=== PATIENT | female | born 1945 | race Caucasian/White ===

== ENCOUNTER 2016-07-27 15:51 | Inpatient (IN) | payer OTHER, MEDICARE ==
--- NOTE | ~2016-07-27 | DS ---
Unit #: [id number] #: [id number] Patient: MADDISON MANZANO [id number] [address] [address] [id number] I MR#: [id number] NAME: MADDISON MANZANO ROOM: [facility] Age: 70 Sex: F Admission Date: 07/27/2016 : 1945 Discharge Date: Attending Physician: Adelaida Pabon M.D. Primary Care Physician: Angel Kessler M.D. DISCHARGE SUMMARY DISCHARGE DIAGNOSES 1. Nonsmall cell lung cancer with metastasis. 2. Acute hypercapnic hypoxic respiratory failure. 3. Chronic obstructive pulmonary disease with exacerbation. 4. Obstructive sleep apnea on CPAP. 5. Hypertension. 6. Hyperlipidemia. 7. Gastroesophageal reflux disease. 8. Gout. 9. Hypothyroidism. 10. Peripheral neuropathy. 11. Morbid obesity. 12. Hypokalemia. CONSULTATIONS 1. Dr. Sexton. 2. Dr. Gracia. PROCEDURE None. DIAGNOSTIC STUDIES LABORATORY: Sodium 142, potassium 2.9, carbon dioxide 37, creatinine 1.1. WBC 7.9, hemoglobin 14.2, platelets 180,000. Blood cultures negative. TSH 1.99. BMI of 40.2. BNP 868. IMAGING: Ultrasound of the extremities: Negative for DVT. CAT scan of the abdomen and pelvis shows no acute findings. Cirrhotic morphology of the liver present. CAT scan of the chest shows a small right pleural effusion, emphysema present. No focal consolidation. ALLERGIES IV dye. DISCHARGE MEDICATIONS 1. DuoNeb 3 mL inhalation three times daily p.r.n. shortness of breath. 2. Neurontin 100 three times daily p.r.n. neuropathy. 3. Valium 5 mg at bedtime. 4. Lopressor 50 p.o. b.i.d. 5. Zocor 40 mg at bedtime. 6. Allopurinol 300 daily. Unit #: [id number] #: [id number] Patient: MADDISON MANZANO 7. Omeprazole 40 daily. 8. Levothyroxine 75 mcg p.o. daily. 9. Vitamin B12 with folic acid 1 mg p.o. daily. HOSPITALIZATION COURSE A 70 year old admitted because of shortness of breath. Shortness of breath: Most likely secondary to COPD and sleep apnea and lung cancer. Currently, she is needing 2 L oxygen and CPAP. Nonsmall cell lung cancer with metastasis: The patient is seen by Dr. Sexton. She did receive chemotherapy. Currently, no active intervention needed as per Dr. Sexton. Acute hypercapnic hypoxic respiratory failure: Most likely secondary to obstructive sleep apnea and COPD. Currently, she is needing CPAP. Dr. Gracia is going to arrange it. Obstructive sleep apnea: Continue with CPAP. COPD with exacerbation: Currently, lungs clear. Continue with DuoNeb. No IV Solu-Medrol needed at the time of discharge. Hypertension: Well controlled. Resting saturations on room air is 86%. PLAN Discussed with Dr. Sexton and paige Mcgee to discharge this patient to rehab. Discussed with daughter. She is agreeing for the patient to go to rehab. The patient agrees to go to rehab. The patient will be discharged to rehab once potassium has been replaced. Follow with family physician one week upon discharge. The patient will have home oxygen set up. The patient will have CPAP arranged at rehab. Follow with Dr. Gracia as an outpatient in two to four weeks' time. Discharge time taken is 33 minutes. Dictated by... Cris Penny/juliano TD: 07/30/2016 12:23 JOB #: [id number] Unit #: [id number] #: [id number] Patient: MADDISON MANZANO DISCHARGE SUMMARY X Adelaida Pabon MD DISCHARGE SUMMARY
--- NOTE | ~2016-07-27 | EKG ---
PATIENT: MADDISON MANZANO UNIT #: [id number] Ventricular Rate: 62 BPM Atrial Rate: 62 BPM P-R Interval: 176 ms QRS Duration: 74 ms Q-T Interval: 426 ms QTC Calculation(Bezet): 432 ms P [place]: 57 degrees Calculated R [place]: -147 degrees Calculated T [place]: 46 degrees Diagnosis Line: Normal sinus rhythm Diagnosis Line: Right superior axis deviation Diagnosis Line: Abnormal ECG Diagnosis Line: No previous ECGs available Diagnosis Line: Confirmed by HERVE MANCERA MD ([id number]) on 07/28/2016 Diagnosis Line: 7:11:33 AM INTERPRETING MD: FIORDALIZA GLOVER
--- NOTE | ~2016-07-27 | CR72 ---
[facility] A Service of [facility] RADIOLOGY TEXT RESULTS PATIENT: MADDISON MANZANO LOCATION: [facility] 311-01 : [birth year] UNIT #: [id number] AGE: [address]: Maria Guadalupe Hill MD SEX: F ORDER DR: [id number] [facility] [address] [place], [place] [address] [id number] E MR#: [id number] #: [id number] NAME: MADDISON MANZANO : 1945 SEX: F STUDY DATE/TIME: 07/27/2016 16:15 UNIT: [facility] ROOM: STUDY DESCRIPTION: CR Chest Single View Portable Attending Physician: Jamshid Johns M.D. Ordering Physician: Jamshid Johns M.D. Primary Care Physician: Angel Kessler M.D. MEDICAL IMAGING REPORT This report is preliminary unless electronic signature is present EXAM Portable chest HISTORY Shortness of air and fatigue for a week. COMPARISON 10/22/2015. FINDINGS Portable view of the chest was obtained. There is moderate cardiomegaly. No infiltrates. There is mild vascular prominence. Bones normal. IMPRESSION 1. Mild cardiomegaly with minimal vascular prominence but there are no infiltrates or effusions. Dictated by... Abhi Multani M.D. THIS IS AN ELECTRONICALLY VERIFIED REPORT Abhi Multani M.D. at 07/28/2016 8:25 AM FEL/pcl TD: 07/27/2016 21:13 JOB #: [id number] MEDICAL IMAGING REPORT COPY
--- NOTE | ~2016-07-27 | HP ---
Unit #: [id number] #: [id number] Patient: MADDISON MANZANO [id number] [address] [place], [place] [address] [id number] MR#: [id number] NAME: MADDISON MANZANO ROOM: Age: 70 Sex: F Admission Date: 07/27/2016 : 1945 Attending Physician: Jamshid Johns M.D. Primary Care Physician: Angel Kessler M.D. HISTORY AND PHYSICAL REVISED REPORT CHIEF COMPLAINT Progressive dyspnea on exertion. HISTORY OF PRESENT ILLNESS This very pleasant 70-year-old female with hypertension, treatment for advanced lung cancer requiring chemotherapy, obstructive sleep apnea and likely COPD, is admitted for progressive dyspnea. The patient was treated for reported staged four non-small cell lung cancer in 2012 with chemotherapy. She was in her usual state of health until October 2015 when she began to experience progressive dyspnea on exertion, weakness and fatigue. Notes some weight gain with pedal edema. No chest pain with the above. No orthopnea or PND. She was seen by Dr. Sexton who did suggest hospitalization but she declined in the past. Has been using nocturnal oxygen as she did not pepper picker her CPAP machine. However, due to progressive symptoms, she presents to this emergency department where her initial ABG shows compensated hypercapnic hypoxic respiratory failure. Chest x-ray shows mild cardiomegaly. On examination, she does have crackles in the bases and elevated JVD. In the ER, she was treated with 125 mg of Solu-Medrol, 40 mg IV Lasix and referred for admission. Denies cough with the above, notes occasional wheezing only, and again no chest pain. PAST MEDICAL HISTORY 1. Hypertension. 2. Hyperlipidemia. 3. GERD. 4. Gout. 5. Hypothyroidism. 6. Stage IV lung cancer which the family believes was non-small cell lung cancer treated with chemotherapy in 2012. 7. Obstructive sleep apnea using nocturnal oxygen. 8. Peripheral neuropathy. 9. Port with removal. ALLERGIES To an old, and unknown antibiotic. HOME MEDICATIONS 1. Omeprazole 40 mg q.a.m. p.r.n. 2. Allopurinol 300 mg q.a.m. 3. Synthroid 0.075 mg q.a.m. Unit #: [id number] #: [id number] Patient: MADDISON MANZANO 4. Lopressor 100 mg b.i.d. 5. Dyazide 37.5 mg daily. 6. Vitamin B12 1000 mcg daily. 7. Zocor 40 mg h.s. 8. Valium 5 mg h.s. 9. Vitamin D 50,000 units every Wednesday. SOCIAL HISTORY The patient lives alone. She stopped smoking four years ago. She does not drink alcohol. FAMILY HISTORY CAD and malignancy. REVIEW OF SYSTEMS Notable for progressive shortness of breath, pedal edema, weight gain, hypertension, hyperlipidemia, GERD, gout, hypothyroidism, lung cancer, obstructive sleep apnea, peripheral neuropathy, port removal. All other systems were reviewed and are negative. PHYSICAL EXAMINATION VITAL SIGNS: Temperature 98, pulse 73, respirations 16, blood pressure 135/71, O2 saturation 91% on 2 liters of oxygen. GENERAL: Very pleasant, moderately obese 70-year-old female currently in no acute distress. HEENT: Eyes PERRLA. Extraocular muscles are intact. Pharynx benign. NECK: Supple. There is a palpable small mass in the right cervical region with apparently is improved according to family. Elevated JVD is noted. No thyromegaly. CHEST: Crackles at the bases. HEART: Normal S1, S2 without murmur. ABDOMEN: Bowel sounds are present. No hepatosplenomegaly, tenderness or masses. EXTREMITIES: Minimal edema. Pedal pulses are diminished. NEUROLOGIC: Awake, alert, oriented. Cranial nerves are intact. Equal strength throughout. DIAGNOSTIC STUDIES LABORATORY: Hematocrit 44.4, normal white count, platelet count. Negative cardiac markers. BNP is 900. SMA-12 sodium 134, potassium 3.4, chloride 91, CO2 is 34, calcium 8.3, lactic acid normal. ABG pH 7.41, pCO2 is 62, pO2 is 51, O2 saturation 84% on 2 liters of oxygen . IMAGING: Chest x-ray shows mild cardiomegaly, minimal vascular prominence. CARDIOVASCULAR: EKG normal sinus rhythm, rate 62 with right axis deviation, low voltage, poor R-wave progression. ASSESSMENT 1. Progressive dyspnea on exertion, rule out congestive heart failure. Patient does have underlying COPD and obstructive sleep apnea. 2. Non-small cell lung cancer in remission since chemotherapy in 2012. 3. Hypothyroidism. 4. Hypertension. 5. Gout. 6. Peripheral neuropathy. PLAN Unit #: [id number] #: [id number] Patient: MADDISON MANZANO 1. Will give Lasix, obtain echo, I's and O's and daily weights. 2. Check CT scans of the abdomen and chest. 3. Venous Dopplers of the legs. I am unable to give IV contrast for the CT scan as patient is allergic to IV dye. 4. Will order AutoPap h.s., and consult patient's cloth bleaching supervisor. 5. Will also order Combivent. The patient did receive one dose of Solu-Medrol which I will not continue. 6. DVT prophylaxis. 7. Obtain TSH. 8. Further workup depending on above. Dictated by Maria Guadalupe Hill M.D. AML/cs TD: 07/27/2016 23:13 JOB #: [id number] CC: Girma Sexton M.D. HISTORY AND PHYSICAL X Maria Guadalupe Hill MD X HISTORY AND PHYSICAL
--- NOTE | ~2016-07-27 | CT4 ---
[facility] A Service of [facility] RADIOLOGY TEXT RESULTS PATIENT: MADDISON MANZANO LOCATION: [facility] 311-01 : [birth year] UNIT #: [id number] AGE: [address]: Adelaida Pabon MD SEX: F ORDER DR: [id number] [facility]. [place], [place] [address] [id number] I MR#: [id number] Acc #: [id number] NAME: MADDISON MANZANO : 1945 SEX: F STUDY DATE/TIME: 07/28/2016 9:05 UNIT: [address] ROOM: [facility] STUDY DESCRIPTION: CT Abd and Pelv Wo Cont Attending Physician: Adelaida Pabon M.D. Ordering Physician: Jamshid Johns M.D. Primary Care Physician: Angel Kessler M.D. MEDICAL IMAGING REPORT This report is preliminary unless electronic signature is present EXAM CT of the abdomen and pelvis INDICATIONS Lung cancer status post remission. Congestive heart failure. Shortness of air. Observation for metastatic disease. TECHNIQUE CT of the abdomen and pelvis without contrast. Coronal and sagittal reconstructions were obtained. This CT exam was performed with one or more of the following radiation dose reduction techniques: automatic exposure control, adjustment of mA and/or kV according to patient size, and iterative reconstruction. COMPARISON PET/CT dated 07/18/2013 FINDINGS There is a slightly nodular configuration of the liver suggesting morphologic changes of cirrhosis. There is some focal fatty infiltration adjacent gallbladder fossa. The gallbladder is not distended. The pancreas, spleen, adrenal glands are within normal limits. There is some mild renal cortical atrophy. No hydronephrosis. There is left-sided colonic diverticulosis, however no diverticulitis. The abdominal aorta is normal in caliber. Pelvis: Bladder is unremarkable. Uterus and ovaries are within normal limits. There is trace free fluid in the pelvis. No enlarged pelvic or inguinal lymph nodes. No acute osseous abnormalities. IMPRESSION [facility] A Service of [facility] RADIOLOGY TEXT RESULTS PATIENT: MADDISON MANZANO LOCATION: A 311-01 : [birth year] UNIT #: [id number] AGE: [address]: Adelaida Pabon MD SEX: F ORDER DR: 1. No acute findings in the abdomen or pelvis. 2. Cirrhotic morphology of the liver with trace free fluid in the pelvis. 3. Diverticulosis. Dictated by... Mathew Piper M.D. THIS IS AN ELECTRONICALLY VERIFIED REPORT Mathew Piper M.D. at 07/28/2016 3:56 PM RPC/angeline TD: 07/28/2016 13:45 JOB #: [id number] MEDICAL IMAGING REPORT COPY
--- NOTE | ~2016-07-27 | CO ---
Unit #: [id number] #: [id number] Patient: MADDISON KING [id number] [address] [address] [id number] I MR#: [id number] NAME: MADDISON KING ROOM: [facility] Age: 70 Sex: F Admission Date: 07/27/2016 : 1945 Attending Physician: Adelaida Pabon M.D. Primary Care Physician: Angel Kessler M.D. Consultation Date: 07/28/2016 CONSULTATION REPORT Ms. King is a 70-year-old white female who I have seen in the past for obstructive sleep apnea. She underwent PSG in February and subsequent CPAP titration. She had moderate to severe MARLEN with an AHI in the mid 20s and severe desaturations. She was actually placed on supplemental oxygen during her initial diagnostic study. She was subsequently titrated on CPAP at I believe 14. She was to be set up on CPAP. She did not elect to obtain CPAP and followup appointments were either canceled through our office or by patient because of current medical problems. She was seen in Dr. Sexton's office and noted to be hypoxic and was started on home oxygen and was convinced to come here for admission. She has a history of progressive dyspnea on exertion, weakness and fatigue. She has had some weight gain with lower extremity edema. She has been admitted and we are asked to see her. PAST HISTORY Significant for: 1. Hypertension. 2. Hyperlipidemia. 3. Gastroesophageal reflux. 4. Gout. 5. Hypothyroidism. 6. Stage 4 non-small cell lung cancer, status post chemo, responding well. 7. History of obstructive sleep apnea. 8. Peripheral neuropathy. 9. She has had a surgery port with subsequent removal. ALLERGIES Unknown antibiotic. HOME MEDICATIONS 1. Prilosec. 2. Allopurinol. 3. Synthroid. 4. Lopressor. 5. Dyazide. 6. Vitamin B12. 7. Zocor. 8. Valium. 9. Vitamin D. FAMILY HISTORY Coronary artery disease and malignancy. Unit #: [id number] #: [id number] Patient: MADDISON KING SOCIAL HISTORY Lives alone. Stopped smoking four years ago, had a long history of smoking. No alcohol or illicit drugs. REVIEW OF SYSTEMS CONSTITUTIONAL: No fevers, chills. HEENT: No rhinorrhea or nasal congestion. PULMONARY: As noted. Progressive shortness of breath. GI: Some reflux. : No hematuria or dysuria. ENDOCRINE: Does have a history of hypothyroidism. MALIGNANCY: Does have a history of lung cancer, non-small cell, status post treatment. NEURO: No unilateral weakness or numbness. Has some peripheral neuropathy. Does have a diagnosis of obstructive sleep apnea. Otherwise, other systems negative. PHYSICAL EXAMINATION GENERAL: White female in no distress. VITAL SIGNS: Blood pressure is 118/63, pulse 70, respiratory rate 16, afebrile. HEENT: Normocephalic, atraumatic. Pupils equal, round, reactive. Sclerae are not icteric. Nasal passages patent. Posterior pharynx clear. Airway small. NECK: Supple. Trachea midline. Could not appreciate any lymphadenopathy. CHEST: The lungs reveal some crackles at the bases. CARDIAC: Regular rate and rhythm. Could not appreciate murmur, rub or gallop. ABDOMEN: Nontender. Bowel sounds present. No hepatosplenomegaly. EXTREMITIES: Without clubbing or cyanosis. There is 1+ edema bilaterally. No cords are palpated. NEUROLOGICAL: Awake, alert, oriented x3. Cranial nerves intact. Muscle strength symmetric bilaterally. Affect calm. DIAGNOSTIC STUDIES IMAGING: Chest x-ray personally reviewed - cardiomegaly with minimal vascular prominence. No infiltrates or effusions. CT scan of the chest - small right pleural effusion. Trace pericardial effusion. Emphysematous changes. No focal consolidation. LABORATORY: Arterial blood gas - 7.46, pCO2 of 62, pO2 of 51 on 2 L. Chemistries unremarkable. BNP is 868. White blood cell count 8900, hematocrit 44.4, platelet count normal. IMPRESSION 1. Acute hypoxemic/hypercarbic respiratory failure. 2. Chronic obstructive pulmonary disease. 3. Volume excess. 4. Obstructive sleep apnea. 5. Hypertension. 6. Non-small cell lung cancer, stage 4. Unit #: [id number] #: [id number] Patient: MADDISON KING PLAN Diuresis, check echo, check spirometry, set up on CPAP. Qualify for home O2. Will need rehab. Will be followed up in office for obstructive sleep apnea and tolerance with CPAP. Will also need outpatient PFTs to determine severity of underlying lung disease. Will make further recommendations pending this. Dictated by... Cris Drew/debora TD: 07/30/2016 12:24 JOB #: [id number] CONSULTATION REPORT X Aston Gracia MD CONSULTATION REPORT
--- NOTE | ~2016-07-27 | CT57 ---
[facility] A Service of [facility] RADIOLOGY TEXT RESULTS PATIENT: MADDISON MANZANO LOCATION: [facility] 311-01 : [birth year] UNIT #: [id number] AGE: [address]: Adelaida Pabon MD SEX: F ORDER DR: [id number] [facility]. [place], [place] [address] [id number] I MR#: [id number] Acc #: [id number] NAME: MADDISON MANZANO : 1945 SEX: F STUDY DATE/TIME: 07/28/2016 9:05 UNIT: [address] ROOM: [facility] STUDY DESCRIPTION: CT Chest Wo Cont Attending Physician: Adelaida Pabon M.D. Ordering Physician: Jamshid Johns M.D. Primary Care Physician: Angel Kessler M.D. MEDICAL IMAGING REPORT This report is preliminary unless electronic signature is present INDICATION Shortness of air. Congestive heart failure. Lung cancer. TECHNIQUE CT of the thorax without contrast. Coronal and sagittal reconstructions were obtained. This CT exam was performed with one or more of the following radiation dose reduction techniques: automatic exposure control, adjustment of mA and/or kV according to patient size, and iterative reconstruction. COMPARISON Concurrent CT abdomen and pelvis dated 07/28/[address] chest dated 11/16/2012. FINDINGS There is a small right pleural effusion. There is trace pericardial effusion. Heart is mildly enlarged. There is moderate emphysema. IMPRESSION 1. Small right pleural effusion and trace pericardial effusion. 2. Emphysema. 3. No focal consolidation. Dictated by... Mathew Piper M.D. THIS IS AN ELECTRONICALLY VERIFIED REPORT Mathew Piper M.D. at 07/28/2016 1:08 PM Vaibhav TD: 07/28/2016 13:01 JOB #: [id number] [facility] A Service [facility] RADIOLOGY TEXT RESULTS PATIENT: MADDISON MANZANO LOCATION: [facility] 311-01 : [birth year] UNIT #: [id number] AGE: [address]: Adelaida Pabon MD SEX: F ORDER DR: MEDICAL IMAGING REPORT COPY
--- NOTE | ~2016-07-27 | US84 ---
[id number] [facility] [address] [place], [place] [address] [id number] I MR#: [id number] Acc #: [id number] NAME: MADDISON MANZANO : 1945 SEX: F STUDY DATE/TIME: 07/28/2016 8:16 UNIT: C3A PCU ROOM: 311 STUDY DESCRIPTION: US LE Veins Complete Matt Stdy Attending Physician: Adelaida Pabon M.D. Ordering Physician: Jamshid Johns M.D. Primary Care Physician: Angel Kessler M.D. MEDICAL IMAGING REPORT This report is preliminary unless electronic signature is present EXAM Lower extremity ultrasound for DVT, 07/28/2016 INDICATION 70-year-old female with bilateral lower extremity swelling for 2 weeks, redness in both lower extremities for 2 days. TECHNIQUE Warner-scale, color Doppler and spectral analysis of both lower extremities was performed. COMPARISON We have no comparison studies. FINDINGS The examination is negative. There is no DVT in either lower extremity. IMPRESSION Negative study. No DVT in either lower extremity. Dictated by... Iftikhar Hendrix M.D. THIS IS AN ELECTRONICALLY VERIFIED REPORT Iftikhar Hendrix M.D. at 07/29/2016 3:11 PM Yuli TD: 07/28/2016 12:53 JOB #: [id number] MEDICAL IMAGING REPORT COPY
--- NOTE | ~2016-07-27 | BMI ---
[facility] Nutrition Therapy DATE: 07/28/16 Patient: MADDISON MANZANO Physician: TOM Address: [address] Room/Bed: [address] [place] [address], Zip: [place] [address] Admit Date: 07/27/16 Date of : [birth year] Height: 5 6 Weight: 249 113.2 HIGH BMI NOTE: DX: PROGRESSIVE DYSPNEA ON EXERTION ANTHROPOMETRICS: HT: 66", WT: 249# (113KG), BMI: 40.2 DIET: HEART HEALTHY RECOMMENDATIONS: CONTINUE HEART HEALTHY DIET TO PROMOTE A STEADY WEIGHT LOSS TOWARDS A HEALTHY BMI OF 19-25. Respectfully, DIANE WICK RD, LD [facility] cc: client file
--- NOTE | ~2016-07-27 | CO ---
Unit #: [id number] #: [id number] Patient: JESSICA KING [id number] [address] [place], [place] [address] [id number] MR#: [id number] NAME: JESSICA KING ROOM: 311 Age: 70 Sex: F Admission Date: 07/27/2016 : 1945 Attending Physician: Adelaida Pabon M.D. Primary Care Physician: Angel Kessler M.D. Consultation Date: 07/28/2016 CONSULTATION REPORT REQUESTING PHYSICIAN Consultation requested by Dr. Maria Guadalupe Hill. REASON FOR CONSULTATION History of metastatic nonsmall cell lung cancer. HISTORY OF PRESENT ILLNESS Ms. Jessica King is 70 years old with a history of COPD, had metastatic nonsmall cell lung cancer originally diagnosed in 2012. Her last chemotherapy was in 2013 and she has not received any chemotherapy since. She was seen in the office last , brought in by her daughter complaining of low oxygen and weakness. She was found to be hypoxic on room air with untreated sleep apnea and I strongly recommended hospitalization because of a 20-pount weight gain suggestive of heart failure. She refused and went home and [facility] was contacted to provide 24/7 home O2. Over the weekend, her daughter, Zakia, visited her from [place] and discovered her to be lethargic and not significantly improved and called me up on July 27, 2016 for my advice. I recommended that she be taken to the emergency room for further evaluation. In the emergency room, she was found to be in right heart failure with significant worsening of hypoxemia and hypercapnia. Blood gas done in the emergency room showed a pH of 7.41, pCO2 of 62.1, and pO2 of 51 on room air. She has been started on steroids, diuretics, nebulized bronchodilators. Has been seen by Dr. Jose Ramon Gracia with initiation of CPAP. The patient tells me she feels significantly better. PAST MEDICAL HISTORY 1. Hypertension. 2. Hyperlipidemia. 3. Gastroesophageal reflux disease. 4. Gout. 5. Hypothyroidism. 6. Metastatic lung cancer diagnosed in 2012, who has been cancer free from November 2013. 7. Sleep apnea with a sleep study last year but has not been treated. 8. Peripheral neuropathy. ALLERGIES Unknown antibiotic. MEDICATIONS AT ADMISSION 1. Prilosec. 2. Allopurinol. 3. Synthroid. Unit #: [id number] #: [id number] Patient: JESSICA KING 4. Lopressor. 5. Dyazide. 6. Vitamin B12. 7. Zocor. 8. Valium. 9. Vitamin D. FAMILY HISTORY No cancer in immediate family. SOCIAL HISTORY Quit smoking four years ago, diagnosed with metastatic lung cancer. Does not drink any alcohol. She is single, , losing her last year which has made her quite depressed. She has two daughters. REVIEW OF SYSTEMS A 14-point review of systems taken. CONSTITUTIONAL: Fatigue, weakness. EYES: Negative. EARS, NOSE, MOUTH, THROAT: Negative. CARDIOVASCULAR: No chest pain or palpitations. RESPIRATORY: Shortness of breathing recently worse. No significant cough or hemoptysis. GASTROINTESTINAL: Negative. GENITOURINARY: Negative. NEUROLOGIC: Some confusion, according to daughter. Peripheral neuropathy. ALLERGY/LYMPHATIC: Negative. SKIN: Negative. MUSCULOSKELETAL: Negative. PSYCHIATRIC: Mild depression related to her loss of her . PHYSICAL EXAMINATION GENERAL: She is a pleasant, elderly woman currently awake, alert, oriented x3. VITAL SIGNS: Temperature is 98, pulse 66, respiratory rate 16, blood pressure 115/61, O2 saturations 97% on 2 L. HEENT: Shows pupils equal, react well to light. No pallor, icterus. Mucous membranes are moist. NECK: No adenopathy, JVD, thyromegaly. CARDIOVASCULAR: First and second heart sounds are heard and are regular. LUNGS: Chest expansion symmetric. Bilateral equal normal breath sounds. ABDOMEN: Soft, nontender. Bowel sounds active. EXTREMITIES: Normal. Good pulses. No cyanosis, clubbing. Two plus edema. NEUROLOGIC: She is awake, alert and oriented x3 without any focal findings. SKIN: Negative. LYMPHATIC: No palpable lymph nodes. PSYCHIATRIC: Normal affect. DIAGNOSTIC STUDIES LABORATORY: CBC with a white count of 8.9, hemoglobin 13.8, platelet count 205,000. Lactic acid 1.2. Her BNP is 868. Chemistry showed BUN of 15, creatinine 0.8. LFTs are normal. TSH is 1.99. IMAGING: I personally reviewed a CT scan of the chest, abdomen, pelvis. She has no evidence of recurrent or metastatic nonsmall cell lung cancer Unit #: [id number] #: [id number] Patient: JESSICA KING and has small effusions. Doppler studies of both lower extremities do not show any DVT. CARDIOVASCULAR: Echocardiogram is pending. ASSESSMENT AND PLAN Ms. Jessica King is 70 years old with a history of metastatic nonsmall cell lung cancer, chronic obstructive pulmonary disease, and obstructive sleep apnea untreated. Admitted with worsening shortness of breathing and hypercapnic respiratory failure. She likely has right heart failure, right pulmonary hypertension, related to chronic hypoxemia. I discussed with her and daughter the CAT scan did not show any evidence of recurrent lung cancer and she continues to stay in remission. Discussed that she will require treatment of sleep apnea and we discussed about keeping the mask on as well as possible need for rehab given her poor performance in recent weeks and limited ambulation. I discussed further that she will need to lose significant weight which would help her sleep apnea as well. Today, she looks considerably improved compared to her visit last and I discussed this with her. Thank you for allowing me to participate in her care and I will follow with you. Dictated by... Girma Sexton M.D. MAMTA/juliano TD: 07/29/2016 11:12 JOB #: [id number] CONSULTATION REPORT X Girma Sexton MD CONSULTATION REPORT
[~2016-07-27 15:51] MED LIST: AMBIEN10 MG PO; ASPIRIN81 MG PO; DIAZEPAM PO; DYAZIDE 37.5/251 CAP PO; LOPRESSOR PO; VITAMIN B122500 MCG PO; ZOCOR PO
[2016-07-27 16:24] LABS: ARTERIAL BLD GAS O2 SATURATION 84.1 % (90.0-100.0); ARTERIAL BLOOD GAS ALLEN TEST POS; ARTERIAL BLOOD GAS ART SITE RIGHT RADIAL; ARTERIAL BLOOD GAS CARBOXY HB 1.2 %sat (0.0-9.0); ARTERIAL BLOOD GAS DELIVERY NASAL CANNULA; ARTERIAL BLOOD GAS HCO3 39.9 mmol/L; ARTERIAL BLOOD GAS MET HB 0.5 %sat (0.0-2.0); ARTERIAL BLOOD GAS PCO2 62.1 mmHg (35.0-45.0); ARTERIAL BLOOD GAS pH 7.416 (7.350-7.450); ARTERIAL DRAW? YES
[2016-07-27 16:29] LABS: BASOPHIL% 0.5 % (0-2.5); DIFF IND NO; EOSINOPHIL% 0.1 % (0.0-7.0); HEMATOCRIT 44.4 % (35.0-45.0); HEMOGLOBIN 13.8 gm/dL (12.0-16.0); LYMPHOCYTE# 1.6 X10e3 (1.0-3.5); MEAN CELL VOLUME 90.5 FL (83-96); MEAN CORPUSCULAR HEMOGLOBIN 28.1 PG (28-34); MEAN CORPUSCULAR HGB CONC 31.1 g/dL (30-36); MEAN PLATELET VOLUME 8.9 FL (6.5-11.5); MONOCYTE# 0.4 X10e3 (0-1.0); MONOCYTE% 4.7 % (3.0-12.0); NEUTROPHIL# 6.8 X10e3 (1.5-7.1); NEUTROPHIL% 76.7 % (40-75); PLATELET COUNT 205 X10e3 (140-420); RED CELL DISTRIBUTION WIDTH 16.2 % (11.0-15.5); WHITE BLOOD COUNT 8.9 X10e3 (4.0-10.5)
[2016-07-27 16:40] LABS: POC - CKMB <1.0 ng/mL (0.0-7.9)
[2016-07-27 16:41] LABS: POC - TROPONIN <0.05 ng/mL (<=0.05)
[2016-07-27 16:56] LABS: ALBUMIN SERUM 3.6 g/dL (3.5-5.0); ALKALINE PHOSPHATASE 73 U/L (32-92); ALT (SGPT) 9 U/L (10-40); AST (SGOT) 15 U/L (10-42); BILIRUBIN, DIRECT 0.2 mg/dL (0.0-0.2); BILIRUBIN,INDIRECT 0.8 mg/dL (0.0-0.9); BLOOD UREA NITROGEN 15 mg/dL (9-23); BUN/CREATININE RATIO 18.75; CALCIUM SERUM 8.3 mg/dL (8.4-10.2); CARBON DIOXIDE 34 mmol/L (22-31); CHLORIDE 91 mmol/L (100-111); CREATININE SERUM 0.8 mg/dL (0.6-1.4); GLOM FILT RATE Estimated ABOVE60 mL/min (>60); GLUCOSE FASTING 105 mg/dL (70-110); POTASSIUM 3.4 mmol/L (3.5-5.1); PROTEIN TOTAL SERUM 6.7 g/dL (6.0-8.3); SODIUM 134 mmol/L (135-145)
[2016-07-27] MEDS ORDERED: ZYLOPRIM PO (19:27)
[2016-07-27] MEDS ORDERED: LEVOTHYROXINE50 MCG PO (19:27)
[2016-07-27] MEDS ORDERED: DIAZEPAM PO (19:28)
[2016-07-27] MEDS ORDERED: VITAMIN B12-FO1 EACH PO (19:29)
[2016-07-27] MEDS ORDERED: OMEPRAZOLE40 M1 PO (19:29)
[2016-07-27] MEDS ORDERED: NEURONTIN100 MG PO (19:29)
[2016-07-28 08:40] LABS: BASOPHIL% 0.4 % (0-2.5); EOSINOPHIL% 0.1 % (0.0-7.0); HEMOGLOBIN 15.3 gm/dL (12.0-16.0); LYMPHOCYTE# 0.9 X10e3 (1.0-3.5); LYMPHOCYTE% 11.8 % (17.0-45.0); MEAN CELL VOLUME 90.3 FL (83-96); MEAN CORPUSCULAR HEMOGLOBIN 28.9 PG (28-34); MEAN PLATELET VOLUME 9.3 FL (6.5-11.5); MONOCYTE# 0.1 X10e3 (0-1.0); NEUTROPHIL# 6.3 X10e3 (1.5-7.1); NEUTROPHIL% 86.7 % (40-75); PLATELET COUNT 185 X10e3 (140-420); RED BLOOD COUNT 5.31 X10e (3.90-5.30); RED CELL DISTRIBUTION WIDTH 16.3 % (11.0-15.5); WHITE BLOOD COUNT 7.3 X10e3 (4.0-10.5)
[2016-07-28 08:46] LABS: DIFF IND NO
[2016-07-28 08:55] LABS: INR 1.2; PARTIAL THROMBOPLASTIN TIME 27.5 SECONDS (23.5-31.3); PROTHROMBIN TIME (PATIENT) 12.4 SECONDS (9.6-11.5)
[2016-07-28 14:34] LABS: BUN/CREATININE RATIO 18.18; CREATININE SERUM 1.1 mg/dL (0.6-1.4); GLOM FILT RATE Estimated 52.2 mL/min (>60); POTASSIUM 4.1 mmol/L (3.5-5.1)
[2016-07-29 06:08] LABS: HEMATOCRIT 45.3 % (35.0-45.0); HEMOGLOBIN 14.3 gm/dL (12.0-16.0); MEAN CELL VOLUME 90.2 FL (83-96); MEAN CORPUSCULAR HEMOGLOBIN 28.4 PG (28-34); MEAN CORPUSCULAR HGB CONC 31.5 g/dL (30-36); MEAN PLATELET VOLUME 9.2 FL (6.5-11.5); RED BLOOD COUNT 5.03 X10e (3.90-5.30); RED CELL DISTRIBUTION WIDTH 16.3 % (11.0-15.5)
[2016-07-29 06:09] LABS: WHITE BLOOD COUNT 12.4 X10e3 (4.0-10.5)
[2016-07-29 07:14] LABS: BUN/CREATININE RATIO 26.36; CALCIUM SERUM 8.8 mg/dL (8.4-10.2); CREATININE SERUM 1.1 mg/dL (0.6-1.4); GLOM FILT RATE Estimated 52.2 mL/min (>60); POTASSIUM 3.5 mmol/L (3.5-5.1)
[2016-07-30 07:15] LABS: HEMATOCRIT 45.3 % (35.0-45.0); HEMOGLOBIN 14.2 gm/dL (12.0-16.0); MEAN CELL VOLUME 89.7 FL (83-96); MEAN CORPUSCULAR HEMOGLOBIN 28.1 PG (28-34); MEAN CORPUSCULAR HGB CONC 31.3 g/dL (30-36); MEAN PLATELET VOLUME 8.8 FL (6.5-11.5); RED BLOOD COUNT 5.05 X10e (3.90-5.30); RED CELL DISTRIBUTION WIDTH 16.2 % (11.0-15.5); WHITE BLOOD COUNT 7.9 X10e3 (4.0-10.5)
[2016-07-30 08:09] LABS: BUN/CREATININE RATIO 24.54; CALCIUM SERUM 8.6 mg/dL (8.4-10.2); CREATININE SERUM 1.1 mg/dL (0.6-1.4); GLOM FILT RATE Estimated 52.2 mL/min (>60)
[2016-07-30 08:13] LABS: POTASSIUM 2.9 mmol/L (3.5-5.1)
[2016-07-30 14:28] LABS: IRON SERUM 44 ug/dL (28-170); TOTAL IRON BINDING CAPACITY 474 ug/dL (269-535); TRANSFERRIN 339 mg/dL (192-382); TRANSFERRIN SATURATION 9 % (20-50)
[2016-07-31] MEDS ORDERED: LOPRESSOR PO (15:19)
[2016-07-31] MEDS ORDERED: NEURONTIN100 MG PO (15:20)
[2016-07-31] MEDS ORDERED: ANORO ELLIPTA1 EACH (15:21)
[2016-07-31] MEDS ORDERED: VENTOLIN5 MG/ML (15:23)
[2016-07-31] MEDS ORDERED: IRON325 ( 651 PO (15:23)
== END 2016-07-31 16:44 | disposition home health service (06) | DRG 189 ==
LOC: CED 15:51 → CEDOF 23:00 → C3A PCU 07-28 02:01
PROVIDERS: Emergency Medicine; Internal Medicine
DX: J96.01 Acute respiratory failure with hypoxia (principal); G62.9 Polyneuropathy, unspecified; J44.1 Chronic obstructive pulmonary disease with (acute) exacerbation; Z68.41 Body mass index [BMI] 40.0-44.9, adult; G47.33 Obstructive sleep apnea (adult) (pediatric); Z85.118 Personal history of other malignant neoplasm of bronchus and lung; E03.9 Hypothyroidism, unspecified; I10 Essential (primary) hypertension; M10.9 Gout, unspecified; Z87.891 Personal history of nicotine dependence; E78.5 Hyperlipidemia, unspecified; K21.9 Gastro-esophageal reflux disease without esophagitis; J96.02 Acute respiratory failure with hypercapnia; E87.6 Hypokalemia; E66.01 Morbid (severe) obesity due to excess calories
CPT/HCPCS: 36600; 71010; 71250; 74176; 80048; 80076; 82553; 82728; 82803; 83540; 83550; 83605; 83880; 84132; 84443; 84484; 85025; 85027; 85610; 85730; 87040; 93005; 93306; 93970; 94640; 94660; 94760; 96374; 97110; 97116; 97162; 97166; 97530; 97535; 99291; G8978-GP; G8979-GP; G8980-GP; G8987-GO; G8988-GO; J1650; J1940; J2930

== ENCOUNTER → 2016-11-05 | Outpatient (CLI) | payer OTHER ==
[~2016-11-05] MED LIST changes: +ANORO ELLIPTA1 EACH; +IRON325 ( 651 PO; +LEVOTHYROXINE50 MCG PO; +NEURONTIN100 MG PO; +OMEPRAZOLE40 M1 PO; +VENTOLIN5 MG/ML; +VITAMIN B12-FO1 EACH PO; +ZYLOPRIM PO
== END | disposition home or self-care (01) ==
LOC: CECH 09:35
DX: J96.01 Acute respiratory failure with hypoxia (principal); I36.1 Nonrheumatic tricuspid (valve) insufficiency
CPT/HCPCS: 93306